=== PATIENT | female | born 1990 | race Caucasian/White ===

== ENCOUNTER 2017-06-19 13:12 | Outpatient (CLI) | payer OTHER | END 2017-06-19 14:27 | disposition home or self-care (01) | LOC: M LDO 13:12 | DX: O47.1 False labor at or after 37 completed weeks of gestation (principal); Z3A.39 39 weeks gestation of pregnancy | CPT/HCPCS: 59025 ==

== ENCOUNTER 2017-06-20 15:54 | Inpatient (IN) | payer OTHER ==
[2017-06-20] MEDS: VANCOMYCIN HCL 1,000 MG, VIAL MATE ADAPTER 1 EACH in D5W 250 ML IV (16:30)
[2017-06-20 16:39] LABS: HEMATOCRIT 39.5 % (36.0-47.0); HEMOGLOBIN 13.5 g/dl (12.0-15.5); MEAN CORPUSCULAR HEMOGLOBIN 29.2 pg (27.0-33.0); MEAN CORPUSCULAR HGB CONC 34.2 g/dl (32.0-36.5); MEAN CORPUSCULAR VOLUME 85.3 fl (80.0-96.0); PLATELET COUNT, AUTOMATED 238 10^3/uL (150-450); RED BLOOD COUNT 4.63 10^6/uL (4.00-5.40); RED CELL DISTRIBUTION WIDTH 13.1 % (11.5-14.5); WHITE BLOOD COUNT 8.7 10^3/uL (4.0-10.0)
[2017-06-20] MEDS ORDERED: OXYTOCIN 30 UNITS IN 0.9% NaCl 500ML IV BAG (J2590) As Ordered (16:39)
[2017-06-20] MEDS: OXYTOCIN DRIP 30 UNITS in APPROPRIATE DILUENT 1 EA IV (17:29)
[2017-06-20] MEDS ORDERED: DIBUCAINE 1% OINTMENT 30GM TOP (17:30)
[2017-06-20] MEDS ORDERED: ACETAMINOPHEN 500 MG TAB PO (17:30)
[2017-06-20] MEDS ORDERED: METHYLERGONOVINE MALEATE 0.2 MG/ML VIAL (J2210) IM (17:30)
[2017-06-20] MEDS ORDERED: PROMETHAZINE 25 MG TAB PO (17:30)
[2017-06-20] MEDS ORDERED: ONDANSETRON 4MG/2ML VIAL (J2405) IV (17:30)
[2017-06-20 17:45] LABS: HBSAG L&D NEGATIVE (NEGATIVE)
[2017-06-20 18:44] LABS: TOTAL PROTEIN,RANDOM URINE 10.4 MG/DL (0.0-12.0)
[2017-06-20 18:44] LABS: CREATININE,RANDOM URINE 42.6 MG/DL
[2017-06-20 18:46] LABS: ALBUMIN 2.6 GM/DL (3.2-5.2); ALBUMIN/GLOBULIN RATIO 0.68 (1.00-1.93); ALKALINE PHOSPHATASE 137 U/L (45-117); ALT/SGPT 19 U/L (12-78); ANION GAP 9 MEQ/L (8-16); AST/SGOT 27 U/L (7-37); BILIRUBIN,TOTAL 0.2 MG/DL (0.2-1.0); BLOOD UREA NITROGEN 20 MG/DL (7-18); CALCIUM LEVEL 8.4 MG/DL (8.5-10.1); CARBON DIOXIDE LEVEL 21 MEQ/L (21-32); CHLORIDE LEVEL 108 MEQ/L (98-107); CREATININE FOR GFR 0.89 MG/DL (0.55-1.30); GLOMERULAR FILTRATION RATE > 60.0 (>60); GLUCOSE, FASTING 74 MG/DL (70-100); LDH LACTATE DEHYDROGENASE 145 U/L (84-246); POTASSIUM SERUM 4.3 MEQ/L (3.5-5.1); SODIUM LEVEL 138 MEQ/L (136-145); TOTAL PROTEIN 6.4 GM/DL (6.4-8.2); URIC ACID 3.8 MG/DL (2.6-6.0)
[2017-06-20] MEDS: RHOGAM 300 MCG (1500 IU) INJ (J2790) IM (20:32)
[2017-06-20] MEDS: MEASLES,MUMPS,RUBELLA VACCINE INJ (MMR-II) (90707) SC (20:32)
[2017-06-20] MEDS: DOCUSATE SODIUM 100 MG CAP PO (20:56)
[2017-06-21] MEDS: PRENATAL VITAMINS CHEWABLE TABLET PO (08:53)
[2017-06-21] MEDS: DOCUSATE SODIUM 100 MG CAP PO (08:53)
[2017-06-21] MEDS: IBUPROFEN 800 MG TAB PO (08:55)
== END 2017-06-21 18:45 | disposition home or self-care (01) | DRG 775 ==
LOC: M LDO 15:54 → M LDI 16:18 → M OBS 19:20
PROVIDERS: Obstetrics & Gynecology
PROC: 10E0XZZ Delivery of Products of Conception, External Approach (ICD-10-PCS; principal; 2017-06-20)
DX: O80 Encounter for full-term uncomplicated delivery (principal); Z37.0 Single live birth; Z3A.39 39 weeks gestation of pregnancy

== ENCOUNTER → 2017-11-04 | Outpatient (REF) | payer OTHER | LOC: M SFHCLERA 15:02 | DX: N30.00 Acute cystitis without hematuria (principal) ==

== ENCOUNTER → 2018-02-19 | Outpatient (REF) | payer OTHER | LOC: M SFHCLERA 15:36 | DX: R30.0 Dysuria (principal) | CPT/HCPCS: 87086 ==

== ENCOUNTER → 2018-09-04 | Outpatient (REF) | payer OTHER ==
[~2018-09-04] MED LIST: *ANUSOI RE; ACET500C OR; COLA100C2 OR; COLA100C5 PO; IBUP600T OR; MILKSUS OR; MOTR200T44 PO; PRENTAB8 PO; TUMS500C PO; lanolin cream TOP
== END ==
LOC: M SFHCLERA 14:15
PROVIDERS: ATTEND Physician Assistant
DX: N39.0 Urinary tract infection, site not specified (principal)